=== PATIENT | female | born 1975 | race Hispanic/Latino ===

== ENCOUNTER → 2017-09-22 | Outpatient (CLI) | payer MEDICAID ==
[~2017-09-22] MED LIST: CETI10TA57 PO; CHOL500050 PO; CLOP75TA32 PO; FOLI1TAB85 PO; FURO20TA4 PO; HUM10VIA SQ; INS7030 SQ; LEVE500T19 PO; MUPI22O TD; PANT40TA PO; PRED20B PO; SPIR25TA4 PO
== END | disposition home or self-care (01) ==
LOC: SHCH 09:08
PROVIDERS: ATTEND Internal Medicine Cardiovascular Disease
DX: I10 Essential (primary) hypertension (principal); J98.11 Atelectasis
CPT/HCPCS: 71046; 93306

== ENCOUNTER 2017-12-12 18:02 | Emergency (ER) | payer MEDICAID ==
[~2017-12-12 18:02] MED LIST changes: -SPIR25TA4 PO; +SPIR25TA6 PO
[2017-12-12] MEDS ORDERED: ASPIRIN 325 MG TABLET ONE (18:23)
[2017-12-12 18:31] LABS: BASOPHILS % (AUTO) 0.5 % (0.0-5.0); EOSINOPHILS % (AUTO) 0.7 % (0.0-8.0); HEMATOCRIT 35.5 % (36-48); LYMPHOCYTES % (AUTO) 36.4 % (21.0-51.0); MEAN CORPUSCULAR HEMOGLOBIN 28.3 pg (27.0-33.0); MEAN CORPUSCULAR HGB CONC 32.9 g/dL (32.0-36.0); MEAN CORPUSCULAR VOLUME 86.2 fL (79-99); MONOCYTES % (AUTO) 7.2 % (3.0-13.0); NEUTROPHILS % (AUTO) 55.2 % (40.0-77.0); PLATELET COUNT (AUTO) 298 K/uL (130-400); RED BLOOD CELL COUNT(AUTO) 4.12 MIL/uL (4.00-5.50); RED CELL DISTRIBUTION WIDTH 16.5 % (11.0-15.5)
[2017-12-12 18:37] LABS: CREATININE 0.8 mg/dL (0.5-1.5); POTASSIUM 4.9 mmol/L (3.5-5.1)
[2017-12-12 18:42] LABS: ALBUMIN 3.5 g/dL (3.5-5.0); BILIRUBIN,TOTAL 0.1 mg/dL (0.2-1.0); TOTAL PROTEIN, SERUM 7.9 g/dL (6.0-8.3)
[2017-12-12 18:43] LABS: INR 0.9 (0.85-1.15); PARTIAL THROMBOPLASTIN TIME 25.2 SEC (26.3-35.5); PROTHROMBIN TIME 9.5 SEC (9.6-11.6)
[2017-12-12 19:47] LABS: B-TYPE NATRIURETIC PEPTIDE 6 pg/mL (0-100)
[2017-12-12] MEDS ORDERED: IOPAMIDOL-370 100 ML VIAL IV ONE (20:03)
[2017-12-12] MEDS ORDERED: HYDROCODONE/ACETAMINOPHEN 7.5/325 MG 15 ML UDCUP ONE (21:07)
== END 2017-12-12 21:20 | disposition home or self-care (01) ==
LOC: EDH 18:02
DX: R07.89 Other chest pain (principal); M32.9 Systemic lupus erythematosus, unspecified; I10 Essential (primary) hypertension; E11.9 Type 2 diabetes mellitus without complications; H54.7 Unspecified visual loss; H91.3 Deaf nonspeaking, not elsewhere classified; Z79.4 Long term (current) use of insulin; Z88.8 Allergy status to other drugs, medicaments and biological substances
CPT/HCPCS: 36415; 71045; 71275; 80053; 82550; 82948; 83880; 84484; 85025; 85378; 85610; 85730; 93005; 94761; 99285; Q9967

== ENCOUNTER 2017-12-18 08:26 | Observation (INO) | payer MEDICAID ==
[~2017-12-18] VITALS: Ht 157.5 cm; Wt 70.6 kg
[2017-12-18 08:58] VITALS: BP 147/92
[2017-12-18] MEDS ORDERED: SODIUM CHLORIDE 0.9% 1000ML 1,000 ML IV SCH (09:15)
[2017-12-18 09:21] LABS: HEMATOCRIT 30.9 % (36-48); MEAN CORPUSCULAR HEMOGLOBIN 28.7 pg (27.0-33.0); PLATELET COUNT (AUTO) 230 K/uL (130-400); RED BLOOD CELL COUNT(AUTO) 3.55 MIL/uL (4.00-5.50); RED CELL DISTRIBUTION WIDTH 16.7 % (11.0-15.5); WHITE BLOOD COUNT (AUTO) 7.2 K/uL (4.8-10.8)
[2017-12-18 09:34] LABS: ALBUMIN 3.1 g/dL (3.5-5.0); BILIRUBIN,TOTAL 0.1 mg/dL (0.2-1.0); CREATININE 0.9 mg/dL (0.5-1.5); POTASSIUM 5.5 mmol/L (3.5-5.1); TOTAL PROTEIN, SERUM 7.2 g/dL (6.0-8.3)
[2017-12-18 12:00] VITALS: BP 124/81
[2017-12-18] MEDS: DEXAMETHASONE SOD PHOSPHATE 4 MG/ML 1ML VIAL IVP SCH ×3 (13:25→20:57)
[2017-12-18 16:00] VITALS: BP 172/103
[2017-12-18] MEDS ORDERED: GLUCAGON 1MG KIT 1 MG ML IM PRN (18:00)
[2017-12-18] MEDS ORDERED: DEXTROSE 50%-WATER 50 ML DISP.SYRIN IV PRN (18:00)
[2017-12-18 19:00] VITALS: BP 132/80
[2017-12-18] MEDS: INSULIN HUMULIN R 100 UNIT/ML 3ML SQ SCH (21:00)
[2017-12-18 23:37] VITALS: BP 148/87
[2017-12-19] MEDS: DEXAMETHASONE SOD PHOSPHATE 4 MG/ML 1ML VIAL IVP SCH (03:21)
[2017-12-19 04:00] VITALS: BP 158/89
[2017-12-19] MEDS: INSULIN HUMULIN R 100 UNIT/ML 3ML SQ SCH (06:45)
[2017-12-19 08:24] VITALS: BP 153/93
== END 2017-12-19 09:00 | disposition home or self-care (01) ==
LOC: EDH 08:26 → 3DH 08:27
PROVIDERS: ADMIT Internal Medicine Hematology & Oncology; ATTEND Internal Medicine Hematology & Oncology
DX: M54.16 Radiculopathy, lumbar region (principal); E11.9 Type 2 diabetes mellitus without complications; I10 Essential (primary) hypertension; G40.909 Epilepsy, unspecified, not intractable, without status epilepticus; H54.7 Unspecified visual loss; H91.90 Unspecified hearing loss, unspecified ear; K21.9 Gastro-esophageal reflux disease without esophagitis; M81.0 Age-related osteoporosis without current pathological fracture; F41.9 Anxiety disorder, unspecified; I63.9 Cerebral infarction, unspecified; Z86.73 Personal history of transient ischemic attack (TIA), and cerebral infarction without residual deficits; Z80.8 Family history of malignant neoplasm of other organs or systems; N28.9 Disorder of kidney and ureter, unspecified
CPT/HCPCS: 36415; 72148; 80053; 82948 ×4; 85027; 96374; 96376 ×2; 99285; G0378 ×25; J1100 ×3; J1815 ×2

== ENCOUNTER 2018-05-01 12:25 | Inpatient (IN) | payer MEDICAID ==
[~2018-05-01] VITALS: Ht 157.5 cm; Wt 73.3 kg
[2018-05-01] VITALS (13 sets, daily range): BP systolic 81–113; BP diastolic 41–72
[2018-05-01 13:03] LABS: BASOPHILS % (AUTO) 0.3 % (0.0-5.0); EOSINOPHILS % (AUTO) 1.2 % (0.0-8.0); HEMATOCRIT 32.5 % (36-48); LYMPHOCYTES % (AUTO) 36.8 % (21.0-51.0); MEAN CORPUSCULAR HEMOGLOBIN 29.1 pg (27.0-33.0); MEAN CORPUSCULAR HGB CONC 32.3 g/dL (32.0-36.0); MEAN CORPUSCULAR VOLUME 90.1 fL (79-99); MONOCYTES % (AUTO) 12.1 % (3.0-13.0); NEUTROPHILS % (AUTO) 49.6 % (40.0-77.0); PLATELET COUNT (AUTO) 262 K/uL (130-400); RED CELL DISTRIBUTION WIDTH 16.9 % (11.0-15.5); WHITE BLOOD COUNT (AUTO) 5.4 K/uL (4.8-10.8)
[2018-05-01] MEDS ORDERED: SODIUM CHLORIDE 0.9% 1000ML 1,000 ML IV ONE (13:04)
[2018-05-01 13:09] LABS: CREATININE 3.2 mg/dL (0.5-1.5); POTASSIUM 4.7 mmol/L (3.5-5.1)
[2018-05-01 13:15] LABS: ALBUMIN 3.2 g/dL (3.5-5.0); BILIRUBIN,TOTAL 0.3 mg/dL (0.2-1.0); TOTAL PROTEIN, SERUM 7.8 g/dL (6.0-8.3)
[2018-05-01] MEDS ORDERED: ZOSYN 3.375GM+NS 50ML 50 ML IV ONE (13:21)
[2018-05-01] MEDS ORDERED: SODIUM CHLORIDE 0.9% 50 ML IV ONE (13:22)
[2018-05-01 13:41] LABS: CREATINE KINASE MB 3.4 ng/mL (0.5-3.6); CREATINE KINASE, TOTAL 111 U/L (21-232); MYOGLOBIN 81 ng/mL (10-92); TROPONIN I < 0.04 ng/mL (0.00-0.06)
[2018-05-01 14:37] LABS: APPEARANCE,URINE Cloudy (CLEAR); BILIRUBIN,URINE Negative (NEGATIVE); COLOR,URINE Dark Yellow (YELLOW); GLUCOSE, URINE (UA) TRACE mg/dL (NEGATIVE); KETONES,URINE Trace mg/dL (NEGATIVE); LEUKOCYTE ESTERASE ,URINE Negative (NEGATIVE); NITRATE,URINE Negative (NEGATIVE); OCCULT BLOOD,URINE Negative (NEGATIVE); PROTEIN,URINE Trace (NEGATIVE)
[2018-05-01 14:58] LABS: RBC,URINE 0-1 /HPF (0-1); WBC,URINE 0-1 /HPF (0-1)
[2018-05-01 14:59] LABS: BACTERIA,URINE Few /HPF (None Seen)
[2018-05-01 15:00] LABS: SQUAMOUS EPITHELIAL CELL,UR Few /HPF (0-2)
[2018-05-01] MEDS ORDERED: LEVOFLOXACIN 750 MG/D5W 150 ML 150 ML ONE (16:21)
[2018-05-01] MEDS ORDERED: IPRATROPIUM/ALBUTEROL SULFATE 3 ML SOLUTION IH ONE (16:32)
[2018-05-01 16:45] LABS: ABG BASE EXCESS -9.8 mmol/L (-2.0-3.0); ABG HCO3 16.6 mmol/L (21.0-28.0); ABG OXYGEN SATURATION 93.1 % (95.0-99.0); ABG PCO2 38 mmHg (32-45)
[2018-05-01] MEDS ORDERED: INSULIN HUMULIN R 100 UNIT/ML 3ML ONE (17:19)
[2018-05-01] MEDS: IPRATROPIUM/ALBUTEROL SULFATE 3 ML SOLUTION IH SCH ×3 (17:30→22:00)
[2018-05-01] MEDS ORDERED: VANCOMYCIN PROTOCOL PER PHARMACY IV PRN (17:30)
[2018-05-01] MEDS: LEVOFLOXACIN 500 MG/D5W 100 ML 100 ML IV SCH (17:30)
[2018-05-01] MEDS ORDERED: CEFEPIME HCL 2 GM VIAL IVP SCH (17:45)
[2018-05-01] MEDS ORDERED: CEFAZOLIN SODIUM 1 GM VIAL IVP SCH (18:02)
[2018-05-01] MEDS: SODIUM BICARB 8.4% 50ML SYRING 75 MEQ in 1/2 NORMAL SALINE 1,000 ML IV SCH (19:29)
[2018-05-01] MEDS: CEFEPIME HCL 1 GM VIAL IVP SCH (19:30)
[2018-05-01] MEDS: METHYLPREDNISOLONE SOD SUCC 125MG/2ML VIAL IV SCH (19:31)
[2018-05-01] MEDS: VANCOMYCIN 1GM+NS 250ML 250 ML IV SCH (20:47)
[2018-05-01] MEDS: METOCLOPRAMIDE 10 MG/2 ML VIAL IVP SCH ×2 (20:47→22:46)
[2018-05-01] MEDS: INSULIN HUMULIN R 100 UNIT/ML 3ML SQ SCH (21:00)
[2018-05-01] MEDS: INSULIN NPH 100 UNIT/ML 3ML SQ SCH (21:00)
[2018-05-01] MEDS ORDERED: INSULIN NPH 100 UNIT/ML 3ML SQ SCH (21:00)
[2018-05-02] VITALS (29 sets, daily range): BP systolic 93–129; BP diastolic 44–84
[2018-05-02] MEDS: IPRATROPIUM/ALBUTEROL SULFATE 3 ML SOLUTION IH SCH ×6 (01:29→22:01)
[2018-05-02] MEDS: METHYLPREDNISOLONE SOD SUCC 125MG/2ML VIAL IV SCH ×2 (02:16→08:02)
[2018-05-02 03:55] LABS: BASOPHILS % (AUTO) 0.2 % (0.0-5.0); HEMATOCRIT 27.8 % (36-48); LYMPHOCYTES % (AUTO) 18.6 % (21.0-51.0); MEAN CORPUSCULAR HEMOGLOBIN 29.8 pg (27.0-33.0); MEAN CORPUSCULAR HGB CONC 33.4 g/dL (32.0-36.0); MEAN CORPUSCULAR VOLUME 89.1 fL (79-99); NEUTROPHILS % (AUTO) 79.2 % (40.0-77.0); NUCLEATED RED BLOOD CELLS 0.1 % (0.0-0.19); PLATELET COUNT (AUTO) 245 K/uL (130-400); RED BLOOD CELL COUNT(AUTO) 3.12 MIL/uL (4.00-5.50); RED CELL DISTRIBUTION WIDTH 16.4 % (11.0-15.5); WHITE BLOOD COUNT (AUTO) 4.2 K/uL (4.8-10.8)
[2018-05-02 04:00] LABS: HEMOGLOBIN A1C 10.3 % (4.0-6.0)
[2018-05-02 04:08] LABS: ALANINE AMINOTRANSFERASE 16 U/L (12-78); ALBUMIN 2.5 g/dL (3.5-5.0); ASPARTATE AMINOTRANSFERASE 13 U/L (10-37); BILIRUBIN,DIRECT < 0.1 mg/dL (0.0-0.3); BILIRUBIN,TOTAL 0.2 mg/dL (0.2-1.0); CARBON DIOXIDE 16 mmol/L (21-32); CHLORIDE 105 mmol/L (101-111); CREATININE 1.5 mg/dL (0.5-1.5); GLOMERULAR FILTR. RATE CALC 41 mL/min (>60); GLUCOSE,RANDOM 290 mg/dL (70-105); PHOSPHORUS 3.4 mg/dL (2.5-4.9); POTASSIUM 4.7 mmol/L (3.5-5.1); SODIUM SERUM 135 mmol/L (136-145); TOTAL PROTEIN, SERUM 6.3 g/dL (6.0-8.3); UREA NITROGEN, BLOOD 17 mg/dL (7-18); URIC ACID 8.1 mg/dL (2.6-7.2)
[2018-05-02] MEDS: SODIUM BICARB 8.4% 50ML SYRING 75 MEQ in 1/2 NORMAL SALINE 1,000 ML IV SCH ×2 (05:27→09:45)
[2018-05-02] MEDS: CEFEPIME HCL 1 GM VIAL IVP SCH ×2 (05:32→18:10)
[2018-05-02] MEDS: METOCLOPRAMIDE 10 MG/2 ML VIAL IVP SCH ×3 (05:33→22:00)
[2018-05-02] MEDS: INSULIN HUMULIN R 100 UNIT/ML 3ML SQ SCH ×4 (06:10→20:34)
[2018-05-02] MEDS: THIAMINE HCL 100 MG/ML 2ML VIAL IVP SCH (07:54)
[2018-05-02] MEDS: ENOXAPARIN SODIUM 30 MG/0.3 ML SQ SCH (08:05)
[2018-05-02] MEDS: FOLIC ACID/VITAMIN B COMP W-C 1 MG CAPSULE PO SCH (08:10)
[2018-05-02] MEDS: PANTOPRAZOLE SODIUM 40 MG TABLET.DR PO SCH (08:10)
[2018-05-02] MEDS: INSULIN NPH 100 UNIT/ML 3ML SQ SCH ×2 (08:21→21:46)
[2018-05-02] MEDS ORDERED: MAGNESIUM 2GM PREMIX 50ML 50 ML IV SCH (09:00)
[2018-05-02] MEDS ORDERED: SODIUM CHLORIDE 0.9% 1000ML 1,000 ML IV SCH ×2 (09:43→11:00)
[2018-05-02] MEDS ORDERED: SODIUM CHLORIDE 0.9% 1000ML 1,000 ML IV ONE (10:44)
[2018-05-02] MEDS ORDERED: DIVA-78 PO (12:26)
[2018-05-02] MEDS ORDERED: METF-444 PO (12:26)
[2018-05-02] MEDS ORDERED: SULF1TAB3 PO (12:26)
[2018-05-02] MEDS ORDERED: ONDA8TAB11 PO (12:26)
[2018-05-02] MEDS ORDERED: OMEP-272 PO (12:26)
[2018-05-02] MEDS ORDERED: SAXA5TAB PO (12:26)
[2018-05-02] MEDS ORDERED: ATOR20TA65 PO (12:26)
[2018-05-02] MEDS ORDERED: VIT1TABL82 PO (12:26)
[2018-05-02] MEDS ORDERED: FESO4TAB PO (12:26)
[2018-05-02] MEDS ORDERED: HYDR-3421 PO (12:26)
[2018-05-02] MEDS ORDERED: CHLO25TA23 PO (12:26)
[2018-05-02] MEDS ORDERED: PENT100C9 PO (12:26)
[2018-05-02] MEDS ORDERED: LISI1TAB11 PO (12:26)
[2018-05-02] MEDS ORDERED: LORA1TAB3 PO (12:26)
[2018-05-02] MEDS ORDERED: SERT50TA12 PO (12:26)
[2018-05-02] MEDS ORDERED: INSREG SQ (12:26)
[2018-05-02] MEDS: METHYLPREDNISOLONE SOD SUCC 40MG/ML 1ML IVP SCH (16:05)
[2018-05-02] MEDS: LEVOFLOXACIN 500 MG/D5W 100 ML 100 ML IV SCH (16:25)
[2018-05-02] MEDS ORDERED: MAGNESIUM CITRATE 296 ML SOLUTION PO ONE (18:00)
[2018-05-03] VITALS (13 sets, daily range): BP systolic 98–153; BP diastolic 53–93
[2018-05-03] MEDS: INSULIN HUMULIN R 100 UNIT/ML 3ML SQ SCH ×6 (00:29→20:53)
[2018-05-03] MEDS: METHYLPREDNISOLONE SOD SUCC 40MG/ML 1ML IVP SCH ×3 (00:33→20:51)
[2018-05-03] MEDS: SODIUM BICARB 8.4% 50ML SYRING 75 MEQ in 1/2 NORMAL SALINE 1,000 ML IV SCH (00:42)
[2018-05-03] MEDS: IPRATROPIUM/ALBUTEROL SULFATE 3 ML SOLUTION IH SCH ×6 (01:36→21:47)
[2018-05-03 03:58] LABS: BASOPHILS % (AUTO) 0.2 % (0.0-5.0); LYMPHOCYTES % (AUTO) 16.3 % (21.0-51.0); MEAN CORPUSCULAR HEMOGLOBIN 29.1 pg (27.0-33.0); MONOCYTES % (AUTO) 8.3 % (3.0-13.0); NEUTROPHILS % (AUTO) 75.2 % (40.0-77.0); PLATELET COUNT (AUTO) 232 K/uL (130-400); RED BLOOD CELL COUNT(AUTO) 3.18 MIL/uL (4.00-5.50); RED CELL DISTRIBUTION WIDTH 16.5 % (11.0-15.5); WHITE BLOOD COUNT (AUTO) 4.3 K/uL (4.8-10.8)
[2018-05-03 04:11] LABS: ALBUMIN 2.7 g/dL (3.5-5.0); BILIRUBIN,TOTAL 0.2 mg/dL (0.2-1.0); MAGNESIUM 2.1 mg/dL (1.80-2.40); POTASSIUM 4.4 mmol/L (3.5-5.1); TOTAL PROTEIN, SERUM 6.7 g/dL (6.0-8.3)
[2018-05-03] MEDS: CEFEPIME HCL 1 GM VIAL IVP SCH ×2 (05:46→18:33)
[2018-05-03] MEDS: METOCLOPRAMIDE 10 MG/2 ML VIAL IVP SCH ×3 (05:47→22:25)
[2018-05-03] MEDS ORDERED: ONDANSETRON 4 MG TABLET PO PRN (08:45)
[2018-05-03] MEDS: ENOXAPARIN SODIUM 30 MG/0.3 ML SQ SCH (08:51)
[2018-05-03] MEDS: FOLIC ACID/VITAMIN B COMP W-C 1 MG CAPSULE PO SCH (08:52)
[2018-05-03] MEDS: THIAMINE HCL 100 MG/ML 2ML VIAL IVP SCH (08:52)
[2018-05-03] MEDS: PANTOPRAZOLE SODIUM 40 MG TABLET.DR PO SCH (08:52)
[2018-05-03] MEDS ORDERED: ERGOCALCIFEROL (VITAMIN D2) 50,000 UNIT CAPSULE PO SCH (09:00)
[2018-05-03] MEDS ORDERED: INSULIN NPH 100 UNIT/ML 3ML SQ SCH (09:00)
[2018-05-03] MEDS: **HM** TOVIAZ 4MG PO SCH (09:00)
[2018-05-03] MEDS: LEVETIRACETAM 500 MG TABLET PO SCH (09:05)
[2018-05-03] MEDS: DIVALPROEX SODIUM 250 MG TABLET.DR PO SCH ×3 (09:06→20:51)
[2018-05-03] MEDS: CLOPIDOGREL BISULFATE 75 MG TAB PO SCH (09:08)
[2018-05-03] MEDS: SERTRALINE HCL 50 MG TABLET PO SCH ×2 (09:11→20:51)
[2018-05-03] MEDS: INSULIN NPH 100 UNIT/ML 3ML SQ SCH ×2 (09:23→20:52)
[2018-05-03] MEDS: LEVOFLOXACIN 500 MG/D5W 100 ML 100 ML IV SCH (16:51)
[2018-05-03] MEDS ORDERED: PHARMACY COMMUNICATION MISC SCH (18:00)
[2018-05-03] MEDS: VANCOMYCIN 1GM+NS 250ML 250 ML IV SCH (20:50)
[2018-05-04] MEDS: INSULIN HUMULIN R 100 UNIT/ML 3ML SQ SCH ×6 (01:11→20:30)
[2018-05-04] MEDS: IPRATROPIUM/ALBUTEROL SULFATE 3 ML SOLUTION IH SCH ×6 (01:57→22:31)
[2018-05-04 04:04] LABS: BASOPHILS % (AUTO) 0.3 % (0.0-5.0); HEMATOCRIT 27.7 % (36-48); MEAN CORPUSCULAR HGB CONC 32.8 g/dL (32.0-36.0); MEAN CORPUSCULAR VOLUME 88.5 fL (79-99); MONOCYTES % (AUTO) 6.7 % (3.0-13.0); PLATELET COUNT (AUTO) 233 K/uL (130-400); RED BLOOD CELL COUNT(AUTO) 3.14 MIL/uL (4.00-5.50); RED CELL DISTRIBUTION WIDTH 16.2 % (11.0-15.5); WHITE BLOOD COUNT (AUTO) 6.6 K/uL (4.8-10.8)
[2018-05-04 04:06] VITALS: BP 149/82
[2018-05-04 04:28] LABS: ALBUMIN 2.9 g/dL (3.5-5.0); BILIRUBIN,TOTAL 0.2 mg/dL (0.2-1.0); CREATININE 0.8 mg/dL (0.5-1.5); TOTAL PROTEIN, SERUM 6.7 g/dL (6.0-8.3)
[2018-05-04] MEDS: METOCLOPRAMIDE 10 MG/2 ML VIAL IVP SCH ×2 (04:42→13:55)
[2018-05-04] MEDS: CEFEPIME HCL 1 GM VIAL IVP SCH ×2 (04:42→17:02)
[2018-05-04 08:06] VITALS: BP 132/83
[2018-05-04] MEDS: **HM** TOVIAZ 4MG PO SCH (09:00)
[2018-05-04] MEDS: METHYLPREDNISOLONE SOD SUCC 40MG/ML 1ML IVP SCH (09:00)
[2018-05-04] MEDS: OXYBUTYNIN 5 MG TAB.SR.24H PO SCH (09:31)
[2018-05-04] MEDS: FOLIC ACID/VITAMIN B COMP W-C 1 MG CAPSULE PO SCH (09:31)
[2018-05-04] MEDS: PREDNISONE 10 MG TABLET PO SCH (09:31)
[2018-05-04] MEDS: DIVALPROEX SODIUM 250 MG TABLET.DR PO SCH ×3 (09:31→20:28)
[2018-05-04] MEDS: PANTOPRAZOLE SODIUM 40 MG TABLET.DR PO SCH (09:31)
[2018-05-04] MEDS: THIAMINE HCL 100 MG/ML 2ML VIAL IVP SCH (09:31)
[2018-05-04] MEDS: LEVETIRACETAM 500 MG TABLET PO SCH (09:31)
[2018-05-04] MEDS: CLOPIDOGREL BISULFATE 75 MG TAB PO SCH (09:31)
[2018-05-04] MEDS: SERTRALINE HCL 50 MG TABLET PO SCH ×2 (09:31→20:28)
[2018-05-04] MEDS: ENOXAPARIN SODIUM 30 MG/0.3 ML SQ SCH (09:36)
[2018-05-04] MEDS: INSULIN NPH 100 UNIT/ML 3ML SQ SCH ×2 (09:45→20:31)
[2018-05-04 12:03] VITALS: BP 127/79
[2018-05-04 16:03] VITALS: BP 133/82
[2018-05-04] MEDS: LEVOFLOXACIN 500 MG/D5W 100 ML 100 ML IV SCH (17:02)
[2018-05-04 20:03] VITALS: BP 131/85
[2018-05-04 23:56] VITALS: BP 142/74
[2018-05-05] MEDS: IPRATROPIUM/ALBUTEROL SULFATE 3 ML SOLUTION IH SCH ×6 (01:55→22:21)
[2018-05-05 03:39] VITALS: BP 109/64
[2018-05-05] MEDS: INSULIN HUMULIN R 100 UNIT/ML 3ML SQ SCH ×6 (04:00→20:16)
[2018-05-05 04:41] LABS: BASOPHILS % (AUTO) 0.6 % (0.0-5.0); HEMATOCRIT 29.3 % (36-48); LYMPHOCYTES % (AUTO) 39.9 % (21.0-51.0); MEAN CORPUSCULAR HEMOGLOBIN 29.4 pg (27.0-33.0); MEAN CORPUSCULAR HGB CONC 33.1 g/dL (32.0-36.0); MEAN CORPUSCULAR VOLUME 88.7 fL (79-99); MONOCYTES % (AUTO) 9.5 % (3.0-13.0); PLATELET COUNT (AUTO) 256 K/uL (130-400); RED CELL DISTRIBUTION WIDTH 16.1 % (11.0-15.5); WHITE BLOOD COUNT (AUTO) 4.3 K/uL (4.8-10.8)
[2018-05-05 04:54] LABS: CREATININE 0.7 mg/dL (0.5-1.5); MAGNESIUM 1.7 mg/dL (1.80-2.40); POTASSIUM 4.2 mmol/L (3.5-5.1)
[2018-05-05] MEDS: CEFEPIME HCL 1 GM VIAL IVP SCH ×2 (05:42→16:16)
[2018-05-05] MEDS: SERTRALINE HCL 50 MG TABLET PO SCH ×2 (07:34→20:14)
[2018-05-05] MEDS: THIAMINE HCL 100 MG/ML 2ML VIAL IVP SCH (07:34)
[2018-05-05] MEDS: FOLIC ACID/VITAMIN B COMP W-C 1 MG CAPSULE PO SCH (07:34)
[2018-05-05] MEDS: PANTOPRAZOLE SODIUM 40 MG TABLET.DR PO SCH (07:34)
[2018-05-05] MEDS: DIVALPROEX SODIUM 250 MG TABLET.DR PO SCH ×3 (07:34→20:15)
[2018-05-05] MEDS: CLOPIDOGREL BISULFATE 75 MG TAB PO SCH (07:34)
[2018-05-05] MEDS: PREDNISONE 10 MG TABLET PO SCH (07:34)
[2018-05-05] MEDS: LEVETIRACETAM 500 MG TABLET PO SCH (07:34)
[2018-05-05] MEDS: INSULIN NPH 100 UNIT/ML 3ML SQ SCH ×2 (07:37→20:17)
[2018-05-05] MEDS: ENOXAPARIN SODIUM 30 MG/0.3 ML SQ SCH (07:38)
[2018-05-05] MEDS: **HM** TOVIAZ 4MG PO SCH (07:38)
[2018-05-05 07:56] VITALS: BP 125/81
[2018-05-05] MEDS ORDERED: MAGNESIUM OXIDE 400 MG TABLET PO SCH (10:00)
[2018-05-05] MEDS: OXYBUTYNIN 5 MG TAB.SR.24H PO SCH (10:26)
[2018-05-05 11:38] VITALS: BP 118/78
[2018-05-05 16:22] VITALS: BP 108/67
[2018-05-05 19:00] VITALS: BP 126/73
[2018-05-05] MEDS: LEVOFLOXACIN 500 MG/D5W 100 ML 100 ML IV SCH (20:15)
[2018-05-05 23:00] VITALS: BP 101/54
[2018-05-06] MEDS: IPRATROPIUM/ALBUTEROL SULFATE 3 ML SOLUTION IH SCH ×6 (02:26→22:49)
[2018-05-06 03:00] VITALS: BP 102/71
[2018-05-06] MEDS: INSULIN HUMULIN R 100 UNIT/ML 3ML SQ SCH ×6 (04:00→21:18)
[2018-05-06] MEDS: CEFEPIME HCL 1 GM VIAL IVP SCH ×2 (06:04→17:16)
[2018-05-06 07:46] VITALS: BP 99/57
[2018-05-06] MEDS: **HM** TOVIAZ 4MG PO SCH (09:00)
[2018-05-06] MEDS: INSULIN NPH 100 UNIT/ML 3ML SQ SCH ×2 (10:00→20:44)
[2018-05-06] MEDS: FOLIC ACID/VITAMIN B COMP W-C 1 MG CAPSULE PO SCH (10:02)
[2018-05-06] MEDS: PANTOPRAZOLE SODIUM 40 MG TABLET.DR PO SCH (10:02)
[2018-05-06] MEDS: THIAMINE HCL 100 MG/ML 2ML VIAL IVP SCH (10:02)
[2018-05-06] MEDS: DIVALPROEX SODIUM 250 MG TABLET.DR PO SCH ×3 (10:02→20:45)
[2018-05-06] MEDS: OXYBUTYNIN 5 MG TAB.SR.24H PO SCH (10:02)
[2018-05-06] MEDS: SERTRALINE HCL 50 MG TABLET PO SCH ×2 (10:02→20:45)
[2018-05-06] MEDS: PREDNISONE 10 MG TABLET PO SCH (10:02)
[2018-05-06] MEDS: CLOPIDOGREL BISULFATE 75 MG TAB PO SCH (10:02)
[2018-05-06] MEDS: ENOXAPARIN SODIUM 30 MG/0.3 ML SQ SCH (10:03)
[2018-05-06] MEDS: LEVETIRACETAM 500 MG TABLET PO SCH (10:03)
[2018-05-06 11:13] VITALS: BP 116/79
[2018-05-06] MEDS: LORAZEPAM 0.5 MG TABLET PO SCH ×2 (12:01→20:45)
[2018-05-06] MEDS ORDERED: MAGNESIUM 2GM PREMIX 50ML 50 ML IV SCH (15:30)
[2018-05-06 16:39] VITALS: BP_SYST 119; BP_SYST 125; BP_DIAS 78; BP_DIAS 81
[2018-05-06 19:55] VITALS: BP 110/67
[2018-05-06] MEDS: LEVOFLOXACIN 500 MG/D5W 100 ML 100 ML IV SCH (20:45)
[2018-05-06 23:36] VITALS: BP 130/71
[2018-05-07] MEDS: IPRATROPIUM/ALBUTEROL SULFATE 3 ML SOLUTION IH SCH ×3 (02:05→09:40)
[2018-05-07 04:02] LABS: HEMATOCRIT 29.9 % (36-48); MEAN CORPUSCULAR HEMOGLOBIN 29.8 pg (27.0-33.0); MEAN CORPUSCULAR HGB CONC 33.7 g/dL (32.0-36.0); MEAN CORPUSCULAR VOLUME 88.5 fL (79-99); PLATELET COUNT (AUTO) 254 K/uL (130-400); RED BLOOD CELL COUNT(AUTO) 3.38 MIL/uL (4.00-5.50); RED CELL DISTRIBUTION WIDTH 15.7 % (11.0-15.5)
[2018-05-07 04:15] LABS: CREATININE 0.8 mg/dL (0.5-1.5); MAGNESIUM 2.1 mg/dL (1.80-2.40); POTASSIUM 3.7 mmol/L (3.5-5.1)
[2018-05-07 04:24] VITALS: BP 124/71
[2018-05-07] MEDS: CEFEPIME HCL 1 GM VIAL IVP SCH (05:52)
[2018-05-07 07:56] VITALS: BP 131/79
[2018-05-07] MEDS: **HM** TOVIAZ 4MG PO SCH (09:00)
[2018-05-07] MEDS: LEVETIRACETAM 500 MG TABLET PO SCH (10:12)
[2018-05-07] MEDS: OXYBUTYNIN 5 MG TAB.SR.24H PO SCH (10:12)
[2018-05-07] MEDS: CLOPIDOGREL BISULFATE 75 MG TAB PO SCH (10:12)
[2018-05-07] MEDS: PANTOPRAZOLE SODIUM 40 MG TABLET.DR PO SCH (10:13)
[2018-05-07] MEDS: SERTRALINE HCL 50 MG TABLET PO SCH (10:13)
[2018-05-07] MEDS: LORAZEPAM 0.5 MG TABLET PO SCH (10:13)
[2018-05-07] MEDS: DIVALPROEX SODIUM 250 MG TABLET.DR PO SCH ×2 (10:13→14:00)
[2018-05-07] MEDS: THIAMINE HCL 100 MG/ML 2ML VIAL IVP SCH (10:13)
[2018-05-07] MEDS: FOLIC ACID/VITAMIN B COMP W-C 1 MG CAPSULE PO SCH (10:13)
[2018-05-07] MEDS: ENOXAPARIN SODIUM 30 MG/0.3 ML SQ SCH (10:17)
[2018-05-07] MEDS: INSULIN NPH 100 UNIT/ML 3ML SQ SCH (10:18)
[2018-05-07 10:59] VITALS: BP 142/91
[2018-05-07] MEDS: INSULIN HUMULIN R 100 UNIT/ML 3ML SQ SCH (11:30)
== END 2018-05-07 14:20 | disposition home or self-care (01) | DRG 720 ==
LOC: EDH 12:25 → EDHIP 12:26 → 2CH 18:23 → 2DH 05-03 23:29
PROVIDERS: ADMIT Internal Medicine; ATTEND Internal Medicine
DX: A41.9 Sepsis, unspecified organism (principal); N17.0 Acute kidney failure with tubular necrosis; J96.01 Acute respiratory failure with hypoxia; J18.9 Pneumonia, unspecified organism; E11.22 Type 2 diabetes mellitus with diabetic chronic kidney disease; E11.51 Type 2 diabetes mellitus with diabetic peripheral angiopathy without gangrene; M32.9 Systemic lupus erythematosus, unspecified; E87.2 Acidosis; H35.52 Pigmentary retinal dystrophy; H54.7 Unspecified visual loss; N18.9 Chronic kidney disease, unspecified; Y95 Nosocomial condition; R65.20 Severe sepsis without septic shock; I12.9 Hypertensive chronic kidney disease with stage 1 through stage 4 chronic kidney disease, or unspecified chronic kidney disease; D64.9 Anemia, unspecified; J98.01 Acute bronchospasm; H91.90 Unspecified hearing loss, unspecified ear; F41.9 Anxiety disorder, unspecified; N83.209 Unspecified ovarian cyst, unspecified side; G40.909 Epilepsy, unspecified, not intractable, without status epilepticus; Z79.52 Long term (current) use of systemic steroids; Z86.73 Personal history of transient ischemic attack (TIA), and cerebral infarction without residual deficits; Z79.4 Long term (current) use of insulin; Z88.8 Allergy status to other drugs, medicaments and biological substances
CPT/HCPCS: 36415; 36600; 71045; 74176; 76705; 80048; 80053; 80076; 80339; 81001; 82550; 82553; 82803; 82948; 83036; 83605; 83690; 83735; 83874; 83880; 84100; 84484; 84550; 85025; 85027; 86038; 86160; 86215; 86235; 87040; 92610; 93005; 93970; 94640; 94664; 94760; 97039; 99291; A4218; J0692; J1650; J1815; J1956; J2543; J2765; J2920; J2930; J3370; J3411; J3475; J3490; J7030; J7512

== ENCOUNTER → 2020-10-08 | Outpatient (CLI) | payer MEDICAID ==
[~2020-10-08] MED LIST changes: +ATOR20TA65 PO; -CETI10TA57 PO; +CHLO25TA23 PO; -CHOL500050 PO; +DIVA-78 PO; -FOLI1TAB85 PO; -FURO20TA4 PO; -HUM10VIA SQ; +HYDR-3421 PO; -INS7030 SQ; +LORA1TAB3 PO; +OMEP-272 PO; +ONDA8TAB65 PO; -PANT40TA PO; +PENT100C9 PO; +SERT-439 PO; +VIT1TABL82 PO
== END | disposition home or self-care (01) ==
LOC: RAH 11:01
PROVIDERS: ATTEND Internal Medicine
DX: E04.2 Nontoxic multinodular goiter (principal)
CPT/HCPCS: 76536

== ENCOUNTER 2023-06-06 11:09 | Emergency (ER) | payer MEDICAID ==
[~2023-06-06] VITALS: Ht 160 cm; Wt 64.9 kg
[~2023-06-06 11:09] MED LIST changes: -ATOR20TA65 PO; +CETI10TA57 PO; -CHLO25TA23 PO; +ERGO500093 PO; +FESO4TAB PO; -HYDR-3421 PO; +INSU100I3 SQ; +INSU100I72 SQ; -LEVE500T19 PO; -LORA1TAB3 PO; +METO25TA6 PO; -OMEP-272 PO; -ONDA8TAB65 PO; -PENT100C9 PO; +PRED10TA23 PO; -PRED20B PO; +PRED5DRO17 OP; +ROSU20TA73 PO; -SERT-439 PO; +SERT150C PO; -SPIR25TA6 PO; -VIT1TABL82 PO
[2023-06-06] MEDS ORDERED: IBUPROFEN 600 MG TABLET PO ONE (12:30)
[2023-06-06 12:35] VITALS: TEMP 98.6
[2023-06-06 13:49] VITALS: BP 110/75; PULSE 92; RESP 16; O2SAT 97
[2023-06-11] MEDS ORDERED: ERGO500093 PO (04:45)
[2023-06-11] MEDS ORDERED: BISA-123 PO (04:45)
[2023-06-11] MEDS ORDERED: TRAZ-187 PO (04:45)
[2023-06-11] MEDS ORDERED: PRED10TA23 PO (04:45)
[2023-06-11] MEDS ORDERED: QUET300T90 PO (04:45)
[2023-06-11] MEDS ORDERED: DIVA-78 PO (04:45)
[2023-06-11] MEDS ORDERED: FESO4TAB PO (04:45)
[2023-06-11] MEDS ORDERED: CETI10TA87 PO (04:45)
[2023-06-11] MEDS ORDERED: METO75TA PO (04:45)
[2023-06-11] MEDS ORDERED: LEVE500T98 PO (04:45)
[2023-06-11] MEDS ORDERED: ROSU20TA73 PO (04:45)
[2023-06-11] MEDS ORDERED: CLOP75TA32 PO (04:45)
[2023-06-11] MEDS ORDERED: SERT-440 PO (04:45)
[2023-06-11] MEDS ORDERED: HYDR-3422 PO (04:45)
[2023-06-11] MEDS ORDERED: LINA145C PO (04:45)
[2023-06-11] MEDS ORDERED: ATOR40TA69 PO (04:45)
== END 2023-06-06 13:50 | disposition home or self-care (01) ==
LOC: EDH 11:09
DX: S93.401A Sprain of unspecified ligament of right ankle, initial encounter (principal); F41.9 Anxiety disorder, unspecified; E11.36 Type 2 diabetes mellitus with diabetic cataract; E78.00 Pure hypercholesterolemia, unspecified; I10 Essential (primary) hypertension; Z79.02 Long term (current) use of antithrombotics/antiplatelets; Z79.4 Long term (current) use of insulin; Z79.52 Long term (current) use of systemic steroids; Z79.899 Other long term (current) drug therapy; W18.39XA Other fall on same level, initial encounter; Y93.89 Activity, other specified; Y92.89 Other specified places as the place of occurrence of the external cause; Y99.8 Other external cause status
CPT/HCPCS: 73610

== ENCOUNTER → 2023-10-18 | Outpatient (CLI) | payer MEDICAID ==
[~2023-10-18] MED LIST changes: +ATOR40TA69 PO; +BISA-123 PO; -CETI10TA57 PO; +CETI10TA87 PO; +HYDR-3422 PO; -INSU100I3 SQ; -INSU100I72 SQ; +LEVE500T98 PO; +LINA145C PO; -METO25TA6 PO; +METO75TA PO; -MUPI22O TD; -PRED5DRO17 OP; +QUET300T90 PO; +SERT-440 PO; -SERT150C PO; +TRAZ-187 PO
[2023-10-18 13:21] LABS: BILIRUBIN,TOTAL 0.3 mg/dL (0.2-1.0); CREATININE 0.9 mg/dL (0.5-1.5); POTASSIUM 4.8 mmol/L (3.5-5.1)
== END | disposition home or self-care (01) ==
LOC: LAB 12:26
PROVIDERS: ATTEND Internal Medicine Cardiovascular Disease
DX: R07.9 Chest pain, unspecified (principal)
CPT/HCPCS: 36415; 80053

== ENCOUNTER → 2023-10-21 | Outpatient (CLI) | payer MEDICAID ==
[~2023-10-21] MED LIST changes: +CEPH500B PO; +FOLI0.8T3 PO; +MECO10005 PO; +OLAN1TAB7 PO; +OSEL75 PO; +PROP40TA7 PO
== END | disposition home or self-care (01) ==
LOC: SHCH 10:42
PROVIDERS: ATTEND Internal Medicine Cardiovascular Disease
DX: I51.7 Cardiomegaly (principal); R01.1 Cardiac murmur, unspecified
CPT/HCPCS: 93306

== ENCOUNTER 2024-01-11 10:01 | Emergency (ER) | payer MEDICAID ==
[~2024-01-11] VITALS: Ht 160 cm; Wt 55.8 kg
[~2024-01-11 10:01] MED LIST changes: -BISA-123 PO; -LEVE500T98 PO; -ROSU20TA73 PO
[2024-01-11 10:17] VITALS: BP 115/78; PULSE 98; RESP 20
[2024-01-11 10:59] LABS: BASOPHILS # (AUTO) 0.01 K/uL (0.00-0.20); BASOPHILS % (AUTO) 0.2 % (0.0-5.0); EOSINOPHILS # (AUTO) 0.02 K/uL (0.00-0.70); EOSINOPHILS % (AUTO) 0.4 % (0.0-8.0); HEMATOCRIT 40.5 % (36-48); IMMATURE GRANULOCYTE ABSOLUTE 0.01 K/uL (0-1); LYMPHOCYTES # (AUTO) 1.9 K/uL (1.0-4.8); LYMPHOCYTES % (AUTO) 41.6 % (21.0-51.0); MEAN CORPUSCULAR HEMOGLOBIN 30.3 pg (27.0-33.0); MEAN CORPUSCULAR HGB CONC 32.6 g/dL (32.0-36.0); MEAN CORPUSCULAR VOLUME 92.9 fL (79-99); MONOCYTES # (AUTO) 0.3 K/uL (0.1-1.0); MONOCYTES % (AUTO) 6.9 % (3.0-13.0); NEUTROPHILS # (AUTO) 2.3 K/uL (1.8-7.7); NEUTROPHILS % (AUTO) 50.7 % (40.0-77.0); PLATELET COUNT (AUTO) 150 K/uL (130-400); RED BLOOD CELL COUNT(AUTO) 4.36 MIL/uL (4.00-5.50); RED CELL DISTRIBUTION WIDTH 15.3 % (11.0-15.5); WHITE BLOOD COUNT (AUTO) 4.5 K/uL (4.8-10.8)
[2024-01-11] MEDS: 0.9%NACL 1000ML 1,000 ML IV SCH (11:14)
[2024-01-11 11:24] LABS: ALBUMIN 2.9 g/dL (3.5-5.0); BILIRUBIN,TOTAL 0.3 mg/dL (0.2-1.0); CREATININE 0.9 mg/dL (0.5-1.0); POTASSIUM 3.8 mmol/L (3.5-5.1); TOTAL PROTEIN, SERUM 7.6 g/dL (6.0-8.3)
[2024-01-11 11:52] LABS: BILIRUBIN,URINE NEGATIVE (NEGATIVE); COLOR,URINE YELLOW (YELLOW); GLUCOSE, URINE (UA) 50 mg/dL (NEGATIVE); KETONES,URINE 5 mg/dL (NEGATIVE); LEUKOCYTE ESTERASE ,URINE 75 Leu/uL (NEGATIVE); NITRATE,URINE NEGATIVE (NEGATIVE); OCCULT BLOOD,URINE NEGATIVE (NEGATIVE); PROTEIN,URINE 30 mg/dL (NEGATIVE)
[2024-01-11 12:05] LABS: ADD UA MICROSCOPIC YES; APPEARANCE,URINE HAZY (CLEAR)
[2024-01-11 12:06] LABS: BACTERIA,URINE RARE /HPF (None Seen); MUCUS,URINE RARE LPF (None Seen); SQUAMOUS EPITHELIAL CELL,UR RARE /HPF (0-2)
[2024-01-11] MEDS ORDERED: IOHEXOL 350 MG/ML 100ML INFUS..BTL IV ONE (12:22)
[2024-01-11] MEDS: CEFTRIAXONE 1G VIAL IVPB STA (13:13)
== END 2024-01-11 16:04 | disposition home or self-care (01) ==
LOC: EDH 10:01
DX: N39.0 Urinary tract infection, site not specified (principal); R53.1 Weakness; D18.03 Hemangioma of intra-abdominal structures; E11.9 Type 2 diabetes mellitus without complications; F03.90 Unspecified dementia, unspecified severity, without behavioral disturbance, psychotic disturbance, mood disturbance, and anxiety; E78.00 Pure hypercholesterolemia, unspecified; I10 Essential (primary) hypertension; Z79.02 Long term (current) use of antithrombotics/antiplatelets; Z79.52 Long term (current) use of systemic steroids; Z86.73 Personal history of transient ischemic attack (TIA), and cerebral infarction without residual deficits
CPT/HCPCS: 99285; 70450; 96365; 96366; 84443; 84484; 80053; 85025; 87040 ×2; 87088; 83605; 81001; 36415; 74177; J0696; Q9967

== ENCOUNTER 2024-03-15 13:18 | Emergency (ER) | payer MEDICAID ==
[~2024-03-15] VITALS: Ht 157.5 cm; Wt 68.0 kg
[~2024-03-15 13:18] MED LIST changes: -CEPH500B PO; +CILO50TA2 PO; -CLOP75TA32 PO; +FOLI1 PO; +LACT10SO9 PO; -LINA145C PO; +LUBI24CA9 PO; -METO75TA PO; -OSEL75 PO; -QUET300T90 PO; -SERT-440 PO; +SERT50TA PO
[2024-03-15] MEDS: MORPHINE 2 MG SYG IM ONE (13:58)
[2024-03-15] MEDS: MORPHINE 2 MG SYG ONE (14:14)
[2024-03-15 14:23] LABS: BASOPHILS # (AUTO) 0.02 K/uL (0.00-0.20); BASOPHILS % (AUTO) 0.1 % (0.0-5.0); EOSINOPHILS # (AUTO) 0.03 K/uL (0.00-0.70); EOSINOPHILS % (AUTO) 0.2 % (0.0-8.0); HEMATOCRIT 32.6 % (36-48); LYMPHOCYTES # (AUTO) 2.3 K/uL (1.0-4.8); LYMPHOCYTES % (AUTO) 16.9 % (21.0-51.0); MEAN CORPUSCULAR HEMOGLOBIN 29.8 pg (27.0-33.0); MEAN CORPUSCULAR HGB CONC 33.1 g/dL (32.0-36.0); MEAN CORPUSCULAR VOLUME 90.1 fL (79-99); MONOCYTES # (AUTO) 0.9 K/uL (0.1-1.0); MONOCYTES % (AUTO) 6.8 % (3.0-13.0); NEUTROPHILS # (AUTO) 10.4 K/uL (1.8-7.7); NEUTROPHILS % (AUTO) 75.3 % (40.0-77.0); PLATELET COUNT (AUTO) 200 K/uL (130-400); RED BLOOD CELL COUNT(AUTO) 3.62 MIL/uL (4.00-5.50); RED CELL DISTRIBUTION WIDTH 15.7 % (11.0-15.5); WHITE BLOOD COUNT (AUTO) 13.8 K/uL (4.8-10.8)
[2024-03-15 14:29] LABS: CREATININE 0.8 mg/dL (0.5-1.0); POTASSIUM 4.6 mmol/L (3.5-5.1)
[2024-03-15 14:33] LABS: INR 1.07 (0.85-1.15); PROTHROMBIN TIME 11.5 SEC (9.6-11.6)
[2024-03-15 14:34] LABS: PARTIAL THROMBOPLASTIN TIME 29.8 SEC (26.3-35.5)
[2024-03-15] MEDS ORDERED: DIATR MEGLU/DIATRIZOATE SODIUM 30 ML BOTTLE ONE (14:34)
[2024-03-15 17:42] VITALS: BP 110/70; PULSE 106; RESP 18; O2SAT 97
== END 2024-03-15 17:45 | disposition home or self-care (01) ==
LOC: EDH 13:18
DX: E86.0 Dehydration (principal); Z43.1 Encounter for attention to gastrostomy; E11.9 Type 2 diabetes mellitus without complications; F03.90 Unspecified dementia, unspecified severity, without behavioral disturbance, psychotic disturbance, mood disturbance, and anxiety; Z79.899 Other long term (current) drug therapy; Z88.8 Allergy status to other drugs, medicaments and biological substances; Z98.890 Other specified postprocedural states
CPT/HCPCS: 99284; 80048; 85025; 85610; 85730; 36415; 74018; 96372; Q9963; J2270

== ENCOUNTER → 2024-06-20 | Outpatient (CLI) | payer MEDICAID | END | disposition home or self-care (01) | LOC: RAH 12:49 | PROVIDERS: ATTEND Internal Medicine Gastroenterology | DX: R13.11 Dysphagia, oral phase (principal); R63.30 Feeding difficulties, unspecified | CPT/HCPCS: 74230; 92611 ==

== ENCOUNTER 2024-09-12 12:11 | Emergency (ER) | payer MEDICAID ==
[~2024-09-12] VITALS: Ht 160 cm; Wt 54.4 kg
--- NOTE | 2024-09-12 12:26 | ERN ---
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 SISTER STATES SHE HAS HAD DROOLING OUT OF THE RIGHT SIDE OF HER MOUTH AND IS MORE ALTERED THAN NORMALLY OVER THE LAST TWO DAYS. NO FEVER NO CHILLS NO NAUSEA VOMITING. SHE HAS A PEG TUBE HOWEVER SHE EATS BY MOUTH. SHE HAS NOT BEEN TO SEE HER PRIMARY CARE DOCTOR. Allergies: Coded Allergies: phenytoin (Unverified Allergy, Unknown, 03/30/15) pioglitazone (Unverified Allergy, Unknown, 03/30/15) Home Meds Active Scripts Sertraline HCl (Zoloft) 50 Mg Tablet, 100 MG PO DAILY for 30 Days, #30 TAB Prov:HAL BROWN NP 03/07/24 Folic Acid (Folvite) 1 Mg Tab, 1 MG PO DAILYBKFST for 30 Days, #30 TAB Prov:HAL BROWN NP 03/07/24 Reported Medications Lactulose (Lactulose) 20 Gram/30 Ml Solution, 20 GM PO BID, ML 02/12/24 Lubiprostone (Lubiprostone) 24 Mcg Capsule, 24 MCG PO BID, CAP 02/12/24 Cilostazol (Cilostazol) 50 Mg Tablet, 50 MG PO BID, TAB 02/12/24 Olanzapine/Samidorphan Malate (Lybalvi 20-10 mg Tablet) 20 Mg-10 Mg Tablet, 1 EACH PO HS, TAB 11/04/23 Mecobalamin (B12 Active) 1,000 Mcg Tab.chew, 1000 MCG PO DAILY, TAB.CHEW 11/04/23 Fesoterodine Fumarate (Toviaz) 4 Mg Tab.er.24h, 4 MG PO DAILY, TAB 11/04/23 Folic Acid (Folic Acid) 0.8 Mg Tablet, 1 MG PO DAILYBKFST, TAB 11/04/23 Propranolol HCl (Propranolol HCl) 40 Mg Tablet, 40 MG PO DAILY, TAB 11/04/23 Ergocalciferol (Vitamin D2) (Vitamin D2) 1,250 Mcg (47817 Unit) Capsule, 1250 MCG PO QWEEK, CAP 06/11/23 Hydroxyzine HCl (Hydroxyzine HCl) 50 Mg Tablet, 50 MG PO HS PRN for ITCHING, TAB 06/11/23 Atorvastatin Calcium (LIPITOR) 40 Mg Tablet, 40 MG PO HS, TAB 06/11/23 Cetirizine HCl (Cetirizine HCl) 10 Mg Tab.chew, 10 MG PO DAILY, TAB.CHEW 06/11/23 Prednisone (Prednisone) 10 Mg Tab.ds.pk, 10 MG PO DAILY 06/11/23 Trazodone HCl (Trazodone HCl) 100 Mg Tablet, 100 MG PO HS, TAB 06/11/23 Divalproex Sodium (Divalproex Sodium) 500 Mg Tablet.dr, 500 MG PO TID, TAB 06/11/23 Past Medical History Past Medical History: Dementia, Diabetes-Type II, Immunosuppression, Other Additional Past Medical Hx: LUPUS Surgical History: Other Surgical History Other: G TUBE PLACEMENT Family History: Negative Social History: Negative, Lives with family History: Not Applicable RN Note Reviewed/Agreed w/PFSH: Yes Review of System Dictation CONSTITUTIONAL: NEGATIVE EXCEPT FOR HPI HEAD/FACE: NEGATIVE EXCEPT FOR HPI EENT: NEGATIVE EXCEPT FOR HPI RESPIRATORY: NEGATIVE EXCEPT FOR HPI GASTROINTESTINAL/ABDOMINAL: NEGATIVE EXCEPT FOR HPI GENITOURINARY: NEGATIVE EXCEPT FOR HPI MUSCULOSKELETAL: NEGATIVE EXCEPT FOR HPI INTEGUMENTARY: NEGATIVE EXCEPT FOR HPI NEUROLOGICAL/PSYCH: NEGATIVE EXCEPT FOR HPI AMS, DROOLING RIGHT SIDE OF MOUTH HEMATOLOGIC/LYMPHATIC: NEGATIVE EXCEPT FOR HPI ALL SYSTEMS NEGATIVE, EXCEPT NOTED ABOVE. 13 POINT REVIEW OF SYSTEMS ASSESSED AND ALL NEGATIVE EXCEPT FOR ABOVE. Initial Vital Sign VS Vital Signs Date Time Temp Pulse Resp B/P (MAP) Pulse Ox O2 Delivery O2 Flow Rate FiO2 09/12/24 12:29 97.3 103 18 149/101 98 09/12/24 14:38 Room Air* 0 21 Physical Exam Dictation VITAL SIGNS REVIEWED GENERAL APPEARANCE: ALERT, ORIENTED NONVERBAL, BLIND SISTER IS THE CAREGIVER. HEAD AND FACE: NON-TRAUMATIC. EYES: PERRL, PINK CONJUNCTIVAS, EYELID NO TRAUMA, ANTERIOR CHAMBER WITH ARCUS SENILIS. BLIND EARS: PINNAS INTACT AND NO SIGNS OF TRAUMA OR ERYTHEMA EAR CANALS CLEAR AND NO DISCHARGE TM NO ERYTHEMA NOSE: NO DISCHARGE, NO BLEEDING. OROPHARYNX: MOUTH NORMAL, TONGUE PINK, PHARYNX CLEAR,NO ERYTHEMA, TONSILS NO EXUDATES, NO ABSCESSES NOTED, MUCOUS MEMBRANE MOIST NECK: SUPPLE, NON-TENDER, NO THYROMEGALY, NO MASSES, NO JVD, NO BRUITS BREAST:DEFERRED CHEST:NO TENDERNESS, NO CREPITUS, NO PARADOXICAL MOVEMENT, NO RETRACTIONS LUNGS:CLEAR, WELL-VENTILATED, SYMMETRIC, NO RALES, NO WHEEZING, NO RHONCHI, NO STRIDOR, GOOD BREATH SOUNDS BILATERALLY HEART: REGULAR RATE, REGULAR RHYTHM, NO MURMUR, NO GALLOPS VASCULAR: NO PERIPHERAL EDEMA, ABDOMEN: SOFT, POSITIVE BOWEL SOUNDS, NONDISTENDED, NO GUARDING, NONTENDER, NO REBOUND, NO MASSES NO HEPATOMEGALY, NO SPLENOMEGALY, NO CHIANG'S SIGN, NO HERNIAS. G-TUBE IN PLACE RECTAL: DEFERRED GENITAL: DEFERRED NEUROLOGICAL: NONVERBAL MUSCULOSKELETAL: NECK NONTENDER, FULL RANGE OF MOTION, BACK NONTENDER, FULL RANGE OF MOTION, EXTREMITIES: NONTENDER, FULL RANGE OF MOTION SKIN: COLOR PINK, DRY, NO TURGOR, NO RASH, NO LACERATIONS, NO ABRASIONS, NO CONTUSIONS. LYMPHATIC: DEFERRED Results (Laboratory/Radiology) Laboratory/Radiology Laboratory Tests Test 09/12/24 12:43 White Blood Count 4.4 K/uL (4.8-10.8) L Red Blood Count 4.36 MIL/uL (4.00-5.50) Hemoglobin 12.6 g/dL (12.0-16.0) Hematocrit 39.1 % (36-48) Mean Corpuscular Volume 89.7 fL (79-99) Mean Corpuscular Hemoglobin 28.9 pg (27.0-33.0) Mean Corpuscular Hemoglobin Concent 32.2 g/dL (32.0-36.0) Red Cell Distribution Width 13.9 % (11.0-15.5) Platelet Count 186 K/uL (130-400) Mean Platelet Volume 9.0 fL (7.5-10.5) Immature Granulocyte % (Auto) 0.2 % (0-1) Neutrophils (%) (Auto) 61.0 % (40.0-77.0) Lymphocytes (%) (Auto) 32.0 % (21.0-51.0) Monocytes (%) (Auto) 6.1 % (3.0-13.0) Eosinophils (%) (Auto) 0.5 % (0.0-8.0) Basophils (%) (Auto) 0.2 % (0.0-5.0) Neutrophils # (Auto) 2.7 K/uL (1.8-7.7) Lymphocytes # (Auto) 1.4 K/uL (1.0-4.8) Monocytes # (Auto) 0.3 K/uL (0.1-1.0) Eosinophils # (Auto) 0.02 K/uL (0.00-0.70) Basophils # (Auto) 0.01 K/uL (0.00-0.20) Absolute Immature Granulocyte (auto 0.01 K/uL (0-1) Nucleated Red Blood Cells 0.0 % (0.0-0.19) Sodium Level 133 mmol/L (136-145) L Potassium Level 3.7 mmol/L (3.5-5.1) Chloride Level 100 mmol/L (101-111) L Carbon Dioxide Level 29 mmol/L (21-32) Blood Urea Nitrogen 12 mg/dL (7-18) Creatinine 0.8 mg/dL (0.5-1.0) Glomerular Filtration Rate Calc 91 mL/min (>90) Random Glucose 293 mg/dL (70-105) H Total Calcium 9.3 mg/dL (8.5-10.1) Troponin I High Sensitivity 53 ng/L (4-50) *H CT HEAD/BRAIN W/O CONTRAST HISTORY: Altered mental status COMPARISON: None TECHNIQUE: Multiple sequential axial images of the head were obtained from the base of the skull through vertex. Patient was not given contrast through intravenous route. FINDINGS: The ventricles and extraventricular CSF spaces are dilated consistent with cerebral atrophy. Nonspecific white matter changes seen. There is no midline shift, mass effect or herniation. No acute intracranial bleed is seen. Visualized portion of the paranasal sinuses are grossly within normal limits. IMPRESSION: 1. No acute intracranial bleed is seen. 2. Atrophy with white matter changes. Labs Reviewed?: Yes EKG Comment: EKG SINUS TACHYCARDIA/HEART RATE 106/NONSPECIFIC CHANGES TO BE 123 AND V4 ED Course ED Course Orders Procedure Category Date Status Time Ct Head/Brain W/O CT 09/12/24 Resulted Contrast 12:23 Cbc With Differential LAB 09/12/24 Complete 12:23 Troponin I High LAB 09/12/24 Complete Sensitivity 12:23 Urinalysis Profile LAB 09/12/24 Logged 12:23 12 Lead Ekg Tracing- EKG 09/12/24 Resulted Technical 12:23 0.9%Nacl 1000ml (Ns PHA 09/12/24 Complete 1000ml) 12:30 Basic Metabolic Panel LAB 09/12/24 Complete 12:23 Current Medications Medications (Trade) Dose Ordered Sig/Pratima Route PRN Reason Start Time Stop Time Status Last Admin Dose Admin Sodium Chloride 1,000 ml @ 0 mls/hr ONCE ONCE IV 09/12/24 12:30 09/12/24 12:31 DC 09/12/24 14:24 Vital Signs Date Time Temp Pulse Resp B/P (MAP) Pulse Ox O2 Delivery O2 Flow Rate FiO2 09/12/24 14:38 109 16 123/79 98 Room Air* 0 21 09/12/24 12:29 97.3 103 18 149/331 38 1523 PATIENT WANTS TO GO HOME WITH HER SISTER. SISTER STATES SHE HAS ALREADY TALKED TO HER PRIMARY CARE DOCTOR WHO HAS INCREASED HER INSULIN AND STATES SHE DOES WANT TO TAKE PATIENT HOME THAT SHE IS GETTING MORE AGITATED DUE TO HER DEMENTIA. WE WILL DISCHARGE PATIENT HOME WITH HER SISTER. HEART Score Response (Comments) Value Age: 45-65yrs (+1) 1 Risk Factors: 3+ risk factors (+2) 2 Initial Troponin: Normal limit (0) 0 Total 3 Medical Decision Making MDM MDM: DIFFERENTIAL DIAGNOSIS: ACS/AMI/ELECTROLYTE IMBALANCE/DEHYDRATION/UTI/CVA RATIONALE: TESTS CONSIDERED AND ORDERED SECONDARY TO SHARED DECISION MAKING INCLUDE: RADIOLOGY/LABS/EKG PREVIOUS OUTSIDE RECORDS REVIEWED: OLD ER VISITS. REVIEWED RISK OF COMPLICATION AND/OR MORBIDITY OR MORTALITY OF PATIENT MANAGEMENT: NONE MEDICATIONS-PER MEDICATION RECONCILIATION NEED FOR HOSPITALIZATION: PATIENT DOES NOT MEET CRITERIA FOR HOSPITALIZATION. NONE NEED FOR EMERGENCY MAJOR/MINOR SURGERY: NO THERE ARE NO SOCIAL CONCERNS WITH THIS PATIENT. PRESCRIPTION DRUG MANAGEMENT NONE PRESCRIPTIONS WILL INCLUDE SYMPTOMATIC CARE PATIENT'S PRIOR EXTERNAL MEDICAL RECORDS FROM OTHER ER VISITS WERE REVIEWED BY ME INDICATED. PRIOR TESTING AND RESULTS FROM PREVIOUS VISITS WERE REVIEWED. PRIOR TESTS WERE TAKEN INTO ACCOUNT WITH MEDICAL DECISION MAKING AND RESOURCE UTILIZATION, INDEPENDENT HISTORIAN/HISTORIANS WERE USED TO OBTAIN COMPLETE MEDICAL HISTORY. I INDEPENDENTLY INTERPRETED THE TEST THAT WERE PERFORMED, RESULTS WERE REVIEWED BY ME AND CONSIDERED FINDINGS ON RADIOLOGY IF ORDERED. MEDICAL MANAGEMENT AND EXAMINATION INTERPRETATION DISCUSSIONS WERE HAD BY ME WITH OTHER QUALIFIED HEALTHCARE PROFESSIONALS INDICATED FOR THE PATIENT'S CARE. DX & DISP Disposition: Discharge Departure Impression: Primary Impression: Uncontrolled diabetes mellitus Additional Impressions: Hyponatremia, Dehydration, Dementia Condition: Stable Additional Instructions: FOLLOW-UP WITH PRIMARY CARE PROVIDER IN 1 TO 2 DAYS. TAKE MEDICATIONS DIRECTED HERE IN THE EMERGENCY ROOM. OKAY TO CONTINUE HOME MEDICATIONS UNLESS OTHERWISE DISCUSSED DURING YOUR VISIT IN THE EMERGENCY ROOM TODAY. RETURN TO YOUR NEAREST EMERGENCY ROOM IF SYMPTOMS WORSEN OR IF THERE IS NO IMPROVEMENT. CALL 911 IF YOU NEED IMMEDIATE ASSISTANCE. TAKE TYLENOL OR MOTRIN [id number] NEEDED AND IF NO CONTRAINDICATIONS ARE PRESENT. INCREASE ORAL HYDRATION. A WOUND CULTURE OR URINE CULTURE WAS ORDERED HERE IN THE EM ERGENCY ROOM DEPARTMENT PLEASE FOLLOW-UP WITH PRIMARY CARE PROVIDER AND ADVISE THEM TO GET REPEAT PORTS FROM OUR FACILITY. IF YOU HAD ANY ALAINA WRAP/SPLINTS THAT WERE APPLIED HERE, PLEASE DO NOT REMOVE THEM UNTIL YOU SEE YOUR PRIMARY CARE OR SPECIALTY. SEE YOUR PRIMARY CARE DOCTOR FOR FOLLOW UP Referrals: ESTEFANY GAN NP (PCP) Time of Disposition: 16:55 I have reviewed the case, and I agree with, Diagnosis and Plan BRIAN IBRAHIM NP Sep 12, 2024 12:26
--- NOTE | 2024-09-12 12:35 | EKG ---
[facility] Test Date: 2024-09-12 Test Time: 12:31:16 Pat Name: SARAH FERRER Department: ED Room: Gender: F Electronics Specialist: [id number] [phone] [id number] Requested By: BRIAN IBRAHIM Order Number: [id number] Reading MD: Dylon Manriquez Measurements Intervals [place] Rate: 106 P: 28 [place]: 135 QRS: -12 QRSD: 74 T: 21 QT: 353 QTc: 470 Interpretive Statements Sinus tachycardia Poor R wave progression Compared to ECG 02/11/2024 19:40:59 Myocardial infarct finding now present Electronically Signed On 09-12-2024 16:20:45 PIPE WASHER by Dylon Manriquez Please click the below link to view image of tracing.
[2024-09-12 13:03] LABS: BASOPHILS # (AUTO) 0.01 K/uL (0.00-0.20); BASOPHILS % (AUTO) 0.2 % (0.0-5.0); EOSINOPHILS # (AUTO) 0.02 K/uL (0.00-0.70); EOSINOPHILS % (AUTO) 0.5 % (0.0-8.0); HEMATOCRIT 39.1 % (36-48); IMMATURE GRANULOCYTE ABSOLUTE 0.01 K/uL (0-1); LYMPHOCYTES # (AUTO) 1.4 K/uL (1.0-4.8); MEAN CORPUSCULAR HEMOGLOBIN 28.9 pg (27.0-33.0); MEAN CORPUSCULAR HGB CONC 32.2 g/dL (32.0-36.0); MEAN CORPUSCULAR VOLUME 89.7 fL (79-99); MONOCYTES # (AUTO) 0.3 K/uL (0.1-1.0); MONOCYTES % (AUTO) 6.1 % (3.0-13.0); NEUTROPHILS # (AUTO) 2.7 K/uL (1.8-7.7); PLATELET COUNT (AUTO) 186 K/uL (130-400); RED BLOOD CELL COUNT(AUTO) 4.36 MIL/uL (4.00-5.50); RED CELL DISTRIBUTION WIDTH 13.9 % (11.0-15.5); WHITE BLOOD COUNT (AUTO) 4.4 K/uL (4.8-10.8)
[2024-09-12 13:12] LABS: CREATININE 0.8 mg/dL (0.5-1.0); POTASSIUM 3.7 mmol/L (3.5-5.1)
[2024-09-12] MEDS: 0.9%NACL 1000ML 1,000 ML IV ONE (14:24)
--- NOTE | 2024-09-12 14:30 | HMCIMG ---
CT HEAD/BRAIN W/O CONTRAST HISTORY: Altered mental status COMPARISON: None TECHNIQUE: Multiple sequential axial images of the head were obtained from the base of the skull through vertex. Patient was not given contrast through intravenous route. FINDINGS: The ventricles and extraventricular CSF spaces are dilated consistent with cerebral atrophy. Nonspecific white matter changes seen. There is no midline shift, mass effect or herniation. No acute intracranial bleed is seen. Visualized portion of the paranasal sinuses are grossly within normal limits. IMPRESSION: 1. No acute intracranial bleed is seen. 2. Atrophy with white matter changes. CT was performed with one or more following dose reduction techniques: automated exposure control, adjustment of the mA and kv according to patient's size, or use of a iterative reconstruction technique.
[2024-09-12 16:58] VITALS: BP 128/77; PULSE 91; RESP 16; TEMP 97.8; O2SAT 98
[2024-09-14] MEDS ORDERED: LINA145C PO (05:53)
[2024-09-14] MEDS ORDERED: LEVO50TA4 PO (05:53)
[2024-09-14] MEDS ORDERED: INSU100I24 SQ (05:53)
[2024-09-14] MEDS ORDERED: INSU100I3 SQ (05:53)
[2024-09-14] MEDS ORDERED: PIND10TA2 PO (05:53)
[2024-09-16] MEDS ORDERED: CEFP200T14 PO (15:03)
== END 2024-09-12 17:35 | disposition home or self-care (01) ==
LOC: EDH 12:11
DX: E11.65 Type 2 diabetes mellitus with hyperglycemia (principal); E87.1 Hypo-osmolality and hyponatremia; E86.0 Dehydration; F03.90 Unspecified dementia, unspecified severity, without behavioral disturbance, psychotic disturbance, mood disturbance, and anxiety; Z79.02 Long term (current) use of antithrombotics/antiplatelets; Z79.52 Long term (current) use of systemic steroids; Z79.899 Other long term (current) drug therapy
CPT/HCPCS: 99284; 96360; 70450; 96361; 84484; 80048; 85025; 36415; 93005; J7030